=== PATIENT | male | born 1990 | race Caucasian/White ===

== ENCOUNTER 2019-01-09 17:08 | Emergency (ER) | payer SELFPAY ==
--- NOTE | 2019-01-09 18:19 | EDM.PDOC ---
ED HPI GENERAL MEDICAL PROBLEM - General Chief Complaint: Upper Extremity Injury/Pain Stated Complaint: RT WRIST ARM INJURY Time Seen by Provider: 01/09/19 17:21 Source of Information: Reports: Patient, RN Notes Reviewed History Limitations: Reports: No Limitations - History of Present Illness INITIAL COMMENTS - FREE TEXT/NARRATIVE: Patient is a 28-year-old male who presents to the ED for the evaluation of a right wrist injury. The patient notes that he was skateboarding 2 days ago and he fell off of his skateboard and hurt his right wrist. There is some swelling present, but no deformity noted. The patient states that the pain does not radiate anywhere besides his right wrist. He notes that he is right-hand dominant. He states that he has been taking 2 tablets of Tylenol for pain relief, however this has not helped much. He notes that he did try some ice and this did help provide some relief as well. Right Wrist Pain Score (Numeric/FACES): 6 - Related Data Allergies Allergy/AdvReac Type Severity Reaction Status Date / Time No Known Allergies Allergy Verified 01/09/19 17:16 Home Meds: Home Meds Ibuprofen 800 mg PO Q6H PRN #28 tablet 01/09/19 [Rx] Past Medical History - Past Health History Medical/Surgical History: Denies Medical/Surgical History Social & Family History - Tobacco Use Smoking Status *Q: Current Every Day Smoker Years of Tobacco use: 10 Packs/Tins Daily: 1 - Caffeine Use Caffeine Use: Reports: Coffee - Recreational Drug Use Recreational Drug Use: Yes Drug Use in Last 12 Months: Yes Recreational Drug Type: Reports: Marijuana/Hashish Review of Systems - Review of Systems Review Of Systems: See Below Constitutional: Reports: No Symptoms Eyes: Reports: No Symptoms Ears: Reports: No Symptoms Nose: Reports: No Symptoms Mouth/Throat: Reports: No Symptoms Respiratory: Reports: No Symptoms Cardiovascular: Reports: No Symptoms GI/Abdominal: Reports: No Symptoms Genitourinary: Reports: No Symptoms Musculoskeletal: Reports: Joint Pain (Right wrist pain), Other (slight swelling noted to posterior r hand) Skin: Reports: No Symptoms Neurological: Reports: No Symptoms Psychiatric: Reports: No Symptoms ED EXAM, GENERAL - Physical Exam Exam: See Below Exam Limited By: No Limitations General Appearance: Alert, WD/WN, No Apparent Distress Head: Atraumatic, Normocephalic Respiratory/Chest: No Respiratory Distress, Lungs Clear, Normal Breath Sounds, No Accessory Muscle Use, Chest Non-Tender Cardiovascular: Normal Peripheral Pulses, Regular Rate, Rhythm, No Murmur Extremities: Normal Inspection, Normal Range of Motion, Non-Tender, Normal Capillary Refill, Other (Slight swelling noted to the posterior portion of his right hand over the metacarpals.) Neurological: Alert, Oriented, Normal Cognition, Normal Gait, No Motor/Sensory Deficits Psychiatric: Normal Affect, Normal Mood Skin Exam: Warm, Dry, Intact, Normal Color, No Rash Course - Vital Signs Last Recorded V/S: Last Vital Signs Temp 99.2 F 01/09/19 17:13 Pulse 106 H 01/09/19 17:13 Resp 18 01/09/19 17:13 BP 142/87 H 01/09/19 17:13 Pulse Ox 100 01/09/19 17:13 - Orders/Labs/Meds Orders: Active Orders 24 hr Category Date Time Status Wrist Comp Min 3V Rt [CR] Stat Exams 01/09/19 17:28 Ordered DME for Discharge [COMM] Routine Oth 01/09/19 18:25 Ordered - Radiology Interpretation Free Text/Narrative:: Right wrist: 4 views of the right wrist were obtained. Comparison: No prior right wrist exam. Joint spaces are preserved. No fracture, dislocation or other bony abnormality is seen. Impression: 1. No abnormality is identified on right wrist exam. - Re-Assessments/Exams Free Text/Narrative Re-Assessment/Exam: 01/09/19 18:17 Patient presents to the ED for evaluation of a right wrist injury. A wrist x- ray was obtained, and does not appreciate any acute bony abnormalities at this time. Will give general recommendations and discharge home. Departure - Departure Time of Disposition: 18:18 Disposition: Home, Self-Care 01 Clinical Impression: Right wrist pain - Discharge Information *PRESCRIPTION DRUG MONITORING PROGRAM REVIEWED*: No *COPY OF PRESCRIPTION DRUG MONITORING REPORT IN PATIENT RICKEY: No Prescriptions: Ibuprofen 800 mg PO Q6H PRN #28 tablet PRN Reason: Pain Instructions: Wrist Pain, Adult, [id number] Referrals: PCP,None [Primary Care Provider] - Forms: ED Department Discharge Additional Instructions: You have been evaluated in the ED for your right wrist pain. Your x-ray demonstrated no acute fracture or bony abnormality. Please use ice as tolerated to the affected area. You may use the wrist splint for further pain relief, please use as tolerated. You have been provided with a prescription for ibuprofen 800 mg, please take one tablet every 6 hours as needed for pain relief. Do not exceed 3200mg ibuprofen in a 24 hour time period. This has been electronically sent to the [place] pharmacy located in the [facility]. Located at [address] [place] [id number] Please return to ED if your symptoms should change or worsen. - My Orders Last 24 Hours: My Active Orders 01/09/19 17:28 Wrist Comp Min 3V Rt [CR] Stat 01/09/19 18:25 DME for Discharge [COMM] Routine - Assessment/Plan Last 24 Hours: My Active Orders 01/09/19 17:28 Wrist Comp Min 3V Rt [CR] Stat 01/09/19 18:25 DME for Discharge [COMM] Routine
--- NOTE | 2019-01-09 18:57 | CR ---
Right wrist: Four views of the right wrist were obtained. Comparison: No prior right wrist exam. Joint spaces are preserved. No fracture, dislocation or other bony abnormality is seen. Impression: 1. No abnormality is identified on right wrist exam. Diagnostic code #1
== END 2019-01-09 18:40 | disposition home or self-care (01) ==
LOC: JD.ED 17:08
DX: M25.531 Pain in right wrist (principal); F17.210 Nicotine dependence, cigarettes, uncomplicated; V00.131A Fall from skateboard, initial encounter
CPT/HCPCS: 73110-26-RT; 73110-RT; 99283; 99283-25